=== PATIENT | male | born 1940 | race Caucasian/White ===

== ENCOUNTER 2018-05-31 20:13 | Inpatient (IN) | payer BC ==
[~2018-05-31] VITALS: Ht 175.3 cm; Wt 76.0 kg
[2018-05-31] MEDS ORDERED: IPRATROPIUM (NEB) 0.5 MG/2.5 ML AMP INH STA (20:34)
[2018-05-31] MEDS ORDERED: SODIUM CHLORIDE 0.9% 1L BAG IV* STA (20:34)
[2018-05-31] MEDS ORDERED: ALBUTEROL 0.5% (NEB) 2.5 MG/0.5 ML AMP INH STA (20:34)
[2018-05-31] MEDS ORDERED: METHYLPREDNISOLONE 125 MG INJ IV STA (20:34)
[2018-05-31] MEDS ORDERED: IBUPROFEN 600 MG TAB PO ONE (21:00)
--- NOTE | 2018-05-31 22:24 | ERD ---
ER Documentation Chief Complaint Chief Complaint bib ra from home for sob / cough, hx of asthma, given breathing tx en route HPI 78-year-old man complains of cough and wheezing, he does have a history of COPD and states he has been using his albuterol pump without relief. He denies fevers or chills, no chest pain, no calf or leg swelling. ROS All systems reviewed and are negative except as per history of present illness. Medications Home Meds Reported Medications Omeprazole* (Omeprazole*) 20 Mg Capsule.dr, 20 MG PO QAM, #30 CAP 05/31/18 Montelukast Sodium* (Montelukast Sodium*) 10 Mg Tablet, 10 MG PO QHS, #30 TAB 05/31/18 Finasteride* (Finasteride*) 5 Mg Tablet, 5 MG PO DAILY, TAB 05/31/18 Atorvastatin Calcium (Atorvastatin Calcium) 10 Mg Tablet, 10 MG PO QHS, #30 TAB 05/31/18 Aspirin Ec (Aspir 81) 81 Mg Tablet.dr, 81 MG PO DAILY, #30 TAB 05/31/18 Albuterol Sulfate* (Ventolin HFA*) 18 Gm Hfa.aer.ad, 2 PUFF INHALATION Q4H, #1 INHALER 05/31/18 Budesonide-Formoterol Fumarate* (Symbicort*) 160-4.5 Hfa.aer.ad, 2 PUFF INHALATION BID, #1 EACH 05/31/18 Duloxetine Hcl* (Duloxetine Hcl*) 60 Mg Capsule.dr, 60 MG PO DAILY for 90 Days, #90 05/31/18 Allergies Allergies: Coded Allergies: No Known Allergy (Unverified , 05/31/18) PMhx/Soc COPD, hypertension, BPH Medical and Surgical Hx: pt denies Surgical Hx Hx Respiratory Disorders: Yes (asthma, copd) Hx Cardiac Disorders: Yes (hyperlipidemia ) Hx Psychiatric Problems: No Hx Miscellaneous Medical Probl: No Hx Alcohol Use: No Hx Substance Use: No Hx Tobacco Use: No Smoking Status: Never smoker FmHx Family History: No diabetes Physical Exam Vitals Vital Signs Date Temp Pulse Resp B/P (MAP) Pulse Ox O2 O2 Flow FiO2 Time Delivery Rate 05/31/18 98 21 100 21 20:47 05/31/18 99.0 98 19 101/81 97 20:19 (88) Physical Exam Const: No acute distress, afebrile Head: Atraumatic Eyes: Normal Conjunctiva ENT: Normal External Ears, Nose and Mouth. Neck: Full range of motion. No meningismus. Resp: Wheezing bilaterally, no crackles or stridor Cardio: Regular rate and rhythm, no murmurs Abd: Soft, non tender, non distended. Normal bowel sounds Skin: No petechiae or rashes Back: No midline or flank tenderness Ext: No cyanosis, or edema Neur: Awake and alert x3, no focal deficits or facial asymmetry Psych: Normal Mood and Affect Result Diagram: 05/31/18210205/31/182102 Results 24 hrs Laboratory Tests Test 05/31/18 21:01 05/31/18 21:03 POC Venous Lactate 0.9 mmol/L White Blood Count 7.9 10^3/ul Red Blood Count 4.66 10^6/ul Hemoglobin 13.3 g/dl Hematocrit 40.2 % Mean Corpuscular Volume 86.3 fl Mean Corpuscular Hemoglobin 28.5 pg Mean Corpuscular Hemoglobin Concent 33.1 g/dl Red Cell Distribution Width 13.2 % Platelet Count 232 10^3/UL Mean Platelet Volume 9.5 fl Immature Granulocytes % 0.400 % Neutrophils % 62.4 % Lymphocytes % 22.5 % Monocytes % 10.7 % Eosinophils % 3.2 % Basophils % 0.8 % Nucleated Red Blood Cells % 0.0 /100WBC Immature Granulocytes # 0.030 10^3/ul Neutrophils # 4.9 10^3/ul Lymphocytes # 1.8 10^3/ul Monocytes # 0.8 10^3/ul Eosinophils # 0.3 10^3/ul Basophils # 0.1 10^3/ul Nucleated Red Blood Cells # 0.0 10^3/ul Prothrombin Time 12.8 Sec Prothrombin Time Ratio 1.0 INR International Normalized Ratio 0.95 Activated Partial Thromboplast Time 28.1 Sec Sodium Level 137 mmol/L Potassium Level 3.6 mmol/L Chloride Level 103 mmol/L Carbon Dioxide Level 26 mmol/L Anion Gap 8 Blood Urea Nitrogen 13 mg/dl Creatinine 1.05 mg/dl Est Glomerular Filtrat Rate mL/min mL/min Glucose Level 102 mg/dl Calcium Level 9.2 mg/dl Total Bilirubin 0.7 mg/dl Direct Bilirubin 0.00 mg/dl Indirect Bilirubin 0.7 mg/dl Aspartate Amino Transf (AST/SGOT) 24 IU/L Alanine Aminotransferase (ALT/SGPT) 21 IU/L Alkaline Phosphatase 84 IU/L Troponin I < 0.012 ng/ml Total Protein 7.4 g/dl Albumin 4.1 g/dl Globulin 3.30 g/dl Albumin/Globulin Ratio 1.24 Lipase 86 U/L Current Medications Medications Dose Sig/Liam Start Time Status Last (Trade) Ordered Route PRN Stop Time Admin Dose Reason Admin Albuterol 10 mg ONCE STAT 05/31/18 DC 05/31/18 (Proventil INH 20:34 05/31/18 20:47 0.5% (Neb)) 20:37 Ipratropium 1 mg ONCE STAT 05/31/18 DC 05/31/18 [place] INH 20:34 05/31/18 20:46 (Atrovent 20:37 0.02% (Neb)) 125 mg ONCE STAT 05/31/18 DC 05/31/18 Methylprednis IV 20:34 05/31/18 21:45 olone Sodium 20:37 Succinate (Solu-Medrol) Sodium 2,130 ml BOLUS OVER 2 05/31/18 DC 05/31/18 Chloride HOURS STAT 20:34 05/31/18 21:45 (NS) IV* 20:37 Ibuprofen 600 mg ONCE ONCE 05/31/18 DC 05/31/18 (Motrin) PO 21:00 05/31/18 22:15 21:01 Ceftriaxone 50 ml @ ONCE ONCE 05/31/18 DC 05/31/18 Sodium 100 mls/hr IVPB 22:30 05/31/18 22:50 22:59 Albuterol/ 3 ml Q4H RESP 06/01/18 Ipratropium THERAPY HHN 01:00 (Duoneb) IV Flush 3 ml PER 06/01/18 (NS 3 ml) PROTOCOL IV 00:00 Ondansetron 4 mg Q6H PRN 06/01/18 HCl (Zofran IV 00:00 Inj) NAUSEA/VOMITI NG 30 mg Q8H IV 06/01/18 Methylprednis 00:00 olone Sodium Succinate (Solu-Medrol) 650 mg Q6H PRN 06/01/18 Acetaminophen PO .PAIN 1-3 00:00 (Tylenol OR TEMP Tab) 40 mg DAILY@06 06/01/18 Pantoprazole PO 06:00 (Protonix Tab) Aspirin 81 mg DAILY PO 06/01/18 UNV (Halfprin) 09:00 10 mg QHS PO 06/01/18 UNV Atorvastatin 21:00 Calcium (Lipitor) Duloxetine 60 mg DAILY PO 06/01/18 UNV HCl 09:00 (Cymbalta) Finasteride 5 mg DAILY PO 06/01/18 UNV (Proscar) 09:00 Montelukast 10 mg QHS PO 06/01/18 UNV Sodium 21:00 (Singulair) 2 puff BID 06/01/18 UNV Miscellaneous INHALATION 09:00 Information Procedures/MDM IV line was established 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 Patient was afebrile. Blood and urine cultures have been ordered results are pending I will follow-up. Given his cough and wheezing he was initially given a dose of ceftriaxone 1 g IV as empiric therapy and ibuprofen 600 mg p.o. I also administered 2 L normal saline IV and albuterol 10 mg via nebulizer, ipratropium 1 mg via nebulizer, methylprednisolone 125 mg IV x1 1 view chest x-ray performed, read by me revealed atelectatic changes, no acute infiltrates, no pneumothorax. EKG performed, read by me revealed a sinus tachycardia at 104 bpm, normal axis, narrow QRS complex, no concerning ST elevations or depressions noted Lactic acid level was low and I do not suspect sepsis. CBC was normal, electr olytes unremarkable, liver function tests normal, troponin negative, influenza swabs were negative. Patient will be admitted to telemetry setting for continued bronchodilator therapy Departure Diagnosis: Primary Impression: Acute bronchitis with COPD Condition: HUMBLE Arreaga MD May 31, 2018 22:24
[2018-05-31] MEDS ORDERED: CEFTRIAXONE 1 GM/50 ML (PMX) 50 ML IVPB ONE (22:30)
[2018-05-31] MEDS ORDERED: OMEP20CA16 PO (23:53)
[2018-05-31] MEDS ORDERED: ALBU18HF INHALATION (23:53)
[2018-05-31] MEDS ORDERED: FINA5TAB4 PO (23:53)
[2018-05-31] MEDS ORDERED: BUDE6HFA INHALATION (23:53)
[2018-05-31] MEDS ORDERED: ASPI-535 PO (23:53)
[2018-05-31] MEDS ORDERED: MONT10TA24 PO (23:53)
[2018-05-31] MEDS ORDERED: DULO60CA59 PO (23:53)
[2018-05-31] MEDS ORDERED: ATOR10TA65 PO (23:53)
--- NOTE | 2018-05-31 23:55 | HP ---
Date/Time of Note Date/Time of Note DATE: 05/31/18 TIME: 23:55 Assessment/Plan VTE Prophylaxis SCD applied (from Nsg): Yes Pharmacological prophylaxis: NA/contraindicated Pharm contraindication: low risk/ambulating Lines/Catheters IV Catheter Type (from Nrsg): Saline Lock Assessment/Plan Hospital Course This is a 78-year-old male being admitted to the [facility] floor for: #1 acute on chronic COPD exacerbation: Serial scheduled nebulizers, continue Symbicort. IV steroids followed by p.o. burst. Protonix. Chest x-ray does not show any signs of pneumonia however given his exacerbation will give ceftriaxone azithromycin #2 abnormal chest x-ray: 7 mm nodularity noted, will obtain a 2 view chest x-ray in the a.m. for further evaluation. #3 mood disorder: Continue Cymbalta #4 BPH: Continue finasteride #5 hyperlipidemia: Continue statin #6 GERD: Continue PPI #7 DVT GI prophylaxis: SCDs, Protonix Result Diagram: 05/31/18210205/31/182102 Results 24hrs Laboratory Tests Test 05/31/18 21:01 05/31/18 21:03 POC Venous Lactate 0.9 White Blood Count 7.9 Red Blood Count 4.66 L Hemoglobin 13.3 L Hematocrit 40.2 L Mean Corpuscular Volume 86.3 Mean Corpuscular Hemoglobin 28.5 L Mean Corpuscular Hemoglobin Concent 33.1 Red Cell Distribution Width 13.2 Platelet Count 232 Mean Platelet Volume 9.5 Immature Granulocytes % 0.400 Neutrophils % 62.4 Lymphocytes % 22.5 Monocytes % 10.7 Eosinophils % 3.2 Basophils % 0.8 Nucleated Red Blood Cells % 0.0 Immature Granulocytes # 0.030 Neutrophils # 4.9 Lymphocytes # 1.8 Monocytes # 0.8 Eosinophils # 0.3 Basophils # 0.1 Nucleated Red Blood Cells # 0.0 Prothrombin Time 12.8 Prothrombin Time Ratio 1.0 INR International Normalized Ratio 0.95 Activated Partial Thromboplast Time 28.1 Sodium Level 137 Potassium Level 3.6 Chloride Level 103 Carbon Dioxide Level 26 Anion Gap 8 Blood Urea Nitrogen 13 Creatinine 1.05 Est Glomerular Filtrat Rate mL/min Glucose Level 102 Calcium Level 9.2 Total Bilirubin 0.7 Direct Bilirubin 0.00 Indirect Bilirubin 0.7 Aspartate Amino Transf (AST/SGOT) 24 Alanine Aminotransferase (ALT/SGPT) 21 Alkaline Phosphatase 84 Troponin I < 0.012 Total Protein 7.4 Albumin 4.1 Globulin 3.30 H Albumin/Globulin Ratio 1.24 Lipase 86 HPI/ROS Admit Date/Time Admit Date/Time Hx of Present Illness Chief complaint: Cough, wheezing times 3 weeks This is a 78-year-old male with a history of COPD who presented to [facility] for cough times 3 weeks. Patient reports that he has been having a worsening cough for the last 3 weeks accompanied with wheezing. He is also felt lightheaded. He has also felt short of breath and as his symptoms continued to get worse he came into the emergency department. He did report subjective fevers. He denies any sputum production. He does use inhalers at home. He denies any chest pain or lower extremity edema. Allergies: NKDA Medications: See RAMIRO SALMERON Const: As per HPI Eyes : No pain discharge or redness or change in visual acuity ENT: No pain, sore throat, congestion, congestion, dysphagia or discharge Respiratory: As per HPI Cardiovascular: No chest pain, palpitation, PND, or edema GI : no change in appetite, abdominal pain, nausea, vomiting, diarrhea, constipation, or change in the color his stool Genitourinary: No dysuria, hematuria, flank pain , discharge or CVA tenderness Musculoskeletal: No joint pain, back pain, neck pain, restricted range of motion in neck or joints Skin: No rash, bruising or hives Neuro: No headache, dizziness, syncope, seizure, focal weakness Endocrine: No polyuria, polydipsia, temperature intolerance Psych: No hallucination, depression, anxiety or suicidal ideation PMH/Family/Social Past Medical History COPD, mood disorder, hyperlipidemia, BPH, GERD Medications Current Medications Albuterol/ Ipratropium (Duoneb) 3 ml Q4H RESP THERAPY HHN ; Start 06/01/18 at 01:00 Coded Allergies: No Known Allergy (Unverified , 05/31/18) Past Surgical History Left hip and femur surgery status post injury Family History Significant Family History: no pertinent family hx Social History Alcohol Use: none Smoking Status: Former smoker Drug Use: none Exam/Review of Systems Vital Signs Vitals Vital Signs Date Temp Pulse Resp B/P (MAP) Pulse Ox O2 O2 Flow FiO2 Time Delivery Rate 05/31/18 98 21 100 21 20:47 05/31/18 99.0 101/81 20:19 (88) Exam Exam General: Patient is a pleasant male currently lying in bed he does not appear to be in any acute distress, he does appear fatigued HEENT: Atraumatic, normocephalic. The pupils are equal, round and reactive. Extraocular motor are intact Neck: Supple with full range of motion. No rigidity or meningismus Chest: Nontender Lungs: Bilateral expiratory wheezing, nonlabored breathing. Heart: Normal S1-S2, Regular rhythm and rate. No murmur, S3, or S4 Abdomen: Soft , nontender, nondistended , bowel sounds are present. No guarding no rebound tenderness , No masses or organomegaly. No costovertebral temporal angle mass Extremities: Normal to inspection, no edema no cyanosis Neurologic: Normal mental status, speech normal, cranial nerves II through XII are intact, motor and sensory are intact, no focal weakness Additional Comments PROCEDURE: Chest xray. CLINICAL INDICATION: Exacerbation TECHNIQUE: A portable upright AP view of the chest was obtained. COMPARISON: None. FINDINGS: The cardiomediastinal silhouette is within normal limits. The lungs are mildly hyperinflated and show normal vascularity. There is a 7 mm nodular opacity projecting in the left mid lung zone, possibly vascular in etiology. The right lung is clear. No pleural effusion or pneumothorax is identified. The skeletal structures and soft tissues are unremarkable. IMPRESSION: Mild hyperinflation. 7 mm nodular opacity projecting in the left mid lung zone, possibly vascular in etiology however pulmonary nodule is not excluded. Recommend repeating the chest x-ray with 2 views (PA and lateral). RPTAT:PP .Veronika Huber MD, Date Time Electronically viewed and signed by .Veronika Huber MD, on 05/31/2018 22:51 .K/ CC: HUMBLE HERNANDEZ MD [id number] HORACIO ALEMAN May 31, 2018 23:55
[2018-06-01] MEDS ORDERED: ONDANSETRON 4 MG INJ IV PRN
[2018-06-01] MEDS ORDERED: ACETAMINOPHEN 325 MG TAB PO PRN
[2018-06-01] MEDS ORDERED: NACL 0.9% 3 ML SYG IV SCH
[2018-06-01] MEDS: ALBUTEROL/IPRATROPIUM (NEB) 3 ML AMP HHN SCH ×4 (00:47→13:39)
[2018-06-01] MEDS ORDERED: LORAZEPAM 2 MG INJ IV PRN (01:00)
[2018-06-01] MEDS: METHYLPREDNISOLONE 125 MG INJ IV SCH ×3 (01:38→16:13)
[2018-06-01] MEDS ORDERED: AZITHROMYCIN 250 MG TAB PO ONE (02:00)
[2018-06-01 02:04] VITALS: Ht 175.3 cm; Wt 76.0 kg
[2018-06-01 02:20] VITALS: BP 105/53; PULSE 81; RESP 18
[2018-06-01] MEDS: PANTOPRAZOLE (EC) 40 MG TAB PO SCH (06:19)
[2018-06-01 07:36] VITALS: BP 100/59; PULSE 66; RESP 16
[2018-06-01] MEDS ORDERED: NON-FORMULARY/PATIENT OWN MED (Budesonide-Formoterol Fumarate* (Symbicort*) 2 PUFF) INHALATION SCH (09:00)
[2018-06-01] MEDS: FINASTERIDE 5 MG TAB PO SCH ×2 (09:00→13:19)
[2018-06-01] MEDS: ASPIRIN (EC) 81 MG TAB PO SCH (09:17)
[2018-06-01] MEDS: DULOXETINE 30 MG CAP DR PO SCH (09:17)
[2018-06-01] MEDS ORDERED: ALFU10TA2 PO (09:52)
[2018-06-01] MEDS: CEPASTAT LOZENGE MT PRN ×3 (13:23→20:36)
[2018-06-01 14:15] VITALS: BP 112/56; PULSE 80; RESP 16
--- NOTE | 2018-06-01 15:07 | PN ---
Date/Time of Note Date/Time of Note DATE: 06/01/18 TIME: 15:03 Assessment/Plan VTE Prophylaxis Risk score (from Nsg)>0 risk: 4 SCD applied (from Nsg): Yes Pharmacological prophylaxis: LMWH Lines/Catheters IV Catheter Type (from Nrsg): Peripheral IV Assessment/Plan Hospital Course SUBJECTIVE: Dyspnea improved. OBJECTIVE: Physical Exam General: Adequately build 78 year-old male lying in bed in no apparent distress. HEENT: Normocephalic, atraumatic. Eyes: Anicteric sclerae, conjunctivae clear. ENT: Nasal septum midline, oral mucosa moist. Neck supple, no JVD noticed. Respiratory: Bilaterally diminished breath sounds. No use of accessory muscles of respiration. Bilateral expiratory wheezing. Cardiovascular: S1, S2 heard. Regular rate and rhythm. Abdomen: Soft, nontender, and nondistended. Bowel sounds positive in all 4 quadrants. Genitourinary: Deferred. Extremities: No cyanosis, no edema. Peripheral pulses palpable. Neurologic: Cranial nerves II through XII grossly intact. The patient is awake, alert, and oriented. Skin: Normal skin turgor. No skin rashes. Labs & Vitals per chart ASSESSMENT & PLAN 78-year-old male with comorbidities including COPD, dyslipidemia, prostatic hypertrophy, GERD, and mood disorder, who came to the emergency room with chief complaint of cough and wheezing, who was found to have evidence of underlying COPD exacerbation; he was admitted to inpatient setting for further treatment and evaluation. 1. COPD exacerbation. -Continue inhaled bronchodilators BABITA and LABA. -Continue tapering dose of steroids. 2. Possible underlying acute tracheobronchitis. -Continue ceftriaxone plus Zithromax. 3. Dyslipidemia. -Continue statins. 4. Normocytic anemia. -Most probably anemia of chronic disease. -Monitor H&H closely. 5. Mood disorder. -Continue Cymbalta. 6. Prostate hypertrophy. -Continue finasteride and alfuzosin. 7. Fluids, electrolytes, and nutrition. -Low-cholesterol diet. 8. DVT prophylaxis. -Subcutaneous Lovenox. 9. Plan. -Continue tapering dose of steroids. -Continue inhaled bronchodilators -Await clinical improvement. The patient was seen in collaboration with Dr. Sharma. Result Diagram: 06/01/18 0557 06/01/18 0557 Results 24hrs Laboratory Tests Test 05/31/18 21:01 05/31/18 21:03 06/01/18 05:57 POC Venous Lactate 0.9 White Blood Count 7.9 5.2 # Red Blood Count 4.66 L 4.51 L Hemoglobin 13.3 L 12.5 L Hematocrit 40.2 L 39.5 L Mean Corpuscular Volume 86.3 87.6 Mean Corpuscular Hemoglobin 28.5 L 27.7 L Mean Corpuscular Hemoglobin Concent 33.1 31.6 L Red Cell Distribution Width 13.2 13.2 Platelet Count 232 225 Mean Platelet Volume 9.5 9.4 Immature Granulocytes % 0.400 0.400 Neutrophils % 62.4 91.4 H Lymphocytes % 22.5 6.3 L Monocytes % 10.7 1.7 Eosinophils % 3.2 0.0 Basophils % 0.8 0.2 Nucleated Red Blood Cells % 0.0 0.0 Immature Granulocytes # 0.030 0.020 Neutrophils # 4.9 4.8 Lymphocytes # 1.8 0.3 L Monocytes # 0.8 0.1 L Eosinophils # 0.3 0.0 Basophils # 0.1 0.0 Nucleated Red Blood Cells # 0.0 0.0 Prothrombin Time 12.8 Prothrombin Time Ratio 1.0 INR International Normalized Ratio 0.95 Activated Partial Thromboplast Time 28.1 Sodium Level 137 141 Potassium Level 3.6 4.1 Chloride Level 103 107 Carbon Dioxide Level 26 24 Anion Gap 8 10 Blood Urea Nitrogen 13 13 Creatinine 1.05 0.97 Est Glomerular Filtrat Rate mL/min Glucose Level 102 172 Calcium Level 9.2 8.9 Total Bilirubin 0.7 0.4 Direct Bilirubin 0.00 0.00 Indirect Bilirubin 0.7 0.4 Aspartate Amino Transf (AST/SGOT) 24 22 Alanine Aminotransferase (ALT/SGPT) 21 18 Alkaline Phosphatase 84 64 Troponin I < 0.012 Total Protein 7.4 6.8 Albumin 4.1 3.8 Globulin 3.30 H 3.00 Albumin/Globulin Ratio 1.24 1.26 Lipase 86 Hemoglobin A1c 5.7 Magnesium Level 2.0 Triglycerides Level 39 Cholesterol Level 109 LDL Cholesterol, Calculated 42 HDL Cholesterol 59 Cholesterol/HDL Ratio 1.8 Thyroid Stimulating Hormone (TSH) 0.404 L Exam/Review of Systems Exam Vitals Vital Signs Date Temp Pulse Resp B/P (MAP) Pulse Ox O2 O2 Flow FiO2 Time Delivery Rate 06/01/18 97.5 80 16 112/56 95 14:15 (74) 06/01/18 21 13:39 06/01/18 Room Air 01:45 Results Results 24hrs Laboratory Tests Test 05/31/18 21:01 05/31/18 21:03 06/01/18 05:57 POC Venous Lactate 0.9 White Blood Count 7.9 5.2 # Red Blood Count 4.66 L 4.51 L Hemoglobin 13.3 L 12.5 L Hematocrit 40.2 L 39.5 L Mean Corpuscular Volume 86.3 87.6 Mean Corpuscular Hemoglobin 28.5 L 27.7 L Mean Corpuscular Hemoglobin Concent 33.1 31.6 L Red Cell Distribution Width 13.2 13.2 Platelet Count 232 225 Mean Platelet Volume 9.5 9.4 Immature Granulocytes % 0.400 0.400 Neutrophils % 62.4 91.4 H Lymphocytes % 22.5 6.3 L Monocytes % 10.7 1.7 Eosinophils % 3.2 0.0 Basophils % 0.8 0.2 Nucleated Red Blood Cells % 0.0 0.0 Immature Granulocytes # 0.030 0.020 Neutrophils # 4.9 4.8 Lymphocytes # 1.8 0.3 L Monocytes # 0.8 0.1 L Eosinophils # 0.3 0.0 Basophils # 0.1 0.0 Nucleated Red Blood Cells # 0.0 0.0 Prothrombin Time 12.8 Prothrombin Time Ratio 1.0 INR International Normalized Ratio 0.95 Activated Partial Thromboplast Time 28.1 Sodium Level 137 141 Potassium Level 3.6 4.1 Chloride Level 103 107 Carbon Dioxide Level 26 24 Anion Gap 8 10 Blood Urea Nitrogen 13 13 Creatinine 1.05 0.97 Est Glomerular Filtrat Rate mL/min Glucose Level 102 172 Calcium Level 9.2 8.9 Total Bilirubin 0.7 0.4 Direct Bilirubin 0.00 0.00 Indirect Bilirubin 0.7 0.4 Aspartate Amino Transf (AST/SGOT) 24 22 Alanine Aminotransferase (ALT/SGPT) 21 18 Alkaline Phosphatase 84 64 Troponin I < 0.012 Total Protein 7.4 6.8 Albumin 4.1 3.8 Globulin 3.30 H 3.00 Albumin/Globulin Ratio 1.24 1.26 Lipase 86 Hemoglobin A1c 5.7 Magnesium Level 2.0 Triglycerides Level 39 Cholesterol Level 109 LDL Cholesterol, Calculated 42 HDL Cholesterol 59 Cholesterol/HDL Ratio 1.8 Thyroid Stimulating Hormone (TSH) 0.404 L Medications Medication Current Medications Albuterol/ Ipratropium (Duoneb) 3 ml Q4H RESP THERAPY HHN Last administered on 06/01/18at 13:39; Admin Dose 3 ML; Start 06/01/18 at 01:00 IV Flush (NS 3 ml) 3 ml PER PROTOCOL IV ; Start 06/01/18 at 00:00 Ondansetron HCl (Zofran Inj) 4 mg Q6H PRN IV NAUSEA/VOMITING; Start 06/01/18 at 00:00 Methylprednisolone Sodium Succinate (Solu-Medrol) 30 mg Q8H IV Last administered on 06/01/18at 09:18; Admin Dose 30 MG; Start 06/01/18 at 00:00 Acetaminophen (Tylenol Tab) 650 mg Q6H PRN PO .PAIN 1-3 OR TEMP; Start 06/01/18 at 00:00 Pantoprazole (Protonix Tab) 40 mg DAILY@06 PO Last administered on 06/01/18at 06:19; Admin Dose 40 MG; Start 06/01/18 at 06:00 Aspirin (Halfprin) 81 mg DAILY PO Last administered on 06/01/18at 09:17; Admin Dose 81 MG; Start 06/01/18 at 09:00 Atorvastatin Calcium (Lipitor) 10 mg QHS PO ; Start 06/01/18 at 21:00 Duloxetine HCl (Cymbalta) 60 mg DAILY PO Last administered on 06/01/18at 09:17; Admin Dose 60 MG; Start 06/01/18 at 09:00 Finasteride (Proscar) 5 mg DAILY PO Last administered on 06/01/18at 13:19; Admin Dose 5 MG; Start 06/01/18 at 09:00 Montelukast Sodium (Singulair) 10 mg QHS PO ; Start 06/01/18 at 21:00 Lorazepam (Ativan) 0.5 mg Q8H PRN IV AGITATION; Start 06/01/18 at 01:00; Stop 06/02/18 at 00:59 Ceftriaxone Sodium 50 ml @ 100 mls/hr Q24H IVPB ; Start 06/01/18 at 20:00 Azithromycin (Zithromax) 250 mg DAILY PO ; Start 06/02/18 at 09:00; Stop 06/06/18 at 08:59 Phenol (Cepastat Lozenge) 1 lozenge Q1H PRN MT SORE THROAT Last administered on 06/01/18at 13:23; Admin Dose 1 LOZENGE; Start 06/01/18 at 12:30 Alfuzosin HCl (Uroxatral) 10 mg HS PO ; Start 06/01/18 at 21:00 Arformoterol Tartrate (Brovana (Neb)) 2 ml BID INH ; Start 06/01/18 at 15:00 Budesonide (Pulmicort (Neb)) 0.5 mg BID INH ; Start 06/01/18 at 15:00 DANIELA FOOTE NP Jun 01, 2018 15:07
[2018-06-01] MEDS: ARFORMOTEROL TARTRATE 15MCG/2 ML AMP INH SCH ×2 (16:15→20:04)
[2018-06-01] MEDS: BUDESONIDE (NEB) 0.5MG/2ML AMP INH SCH ×2 (16:24→20:04)
[2018-06-01 19:53] VITALS: BP 135/63; PULSE 91; RESP 18
[2018-06-01] MEDS: CEFTRIAXONE 1 GM/50 ML (PMX) 50 ML IVPB SCH (20:29)
[2018-06-01] MEDS: ATORVASTATIN 10 MG TAB PO SCH (20:30)
[2018-06-01] MEDS: ALFUZOSIN (SR) 10 MG TAB PO SCH (20:30)
[2018-06-01] MEDS: MONTELUKAST 10 MG TAB PO SCH (21:00)
[2018-06-02] MEDS: METHYLPREDNISOLONE 125 MG INJ IV SCH ×2 (00:04→08:42)
[2018-06-02 01:52] VITALS: BP 117/59; PULSE 73; RESP 18
[2018-06-02] MEDS: PANTOPRAZOLE (EC) 40 MG TAB PO SCH (05:08)
[2018-06-02 08:14] VITALS: BP 117/61; PULSE 90; RESP 18
[2018-06-02] MEDS: ASPIRIN (EC) 81 MG TAB PO SCH (08:41)
[2018-06-02] MEDS: DULOXETINE 30 MG CAP DR PO SCH (08:41)
[2018-06-02] MEDS: FINASTERIDE 5 MG TAB PO SCH (08:41)
[2018-06-02] MEDS: BUDESONIDE (NEB) 0.5MG/2ML AMP INH SCH ×2 (08:51→20:54)
[2018-06-02] MEDS: ARFORMOTEROL TARTRATE 15MCG/2 ML AMP INH SCH ×2 (08:51→20:55)
[2018-06-02] MEDS: AZITHROMYCIN 250 MG TAB PO SCH (11:27)
--- NOTE | 2018-06-02 12:20 | PN ---
Date/Time of Note Date/Time of Note DATE: 06/02/18 TIME: 12:20 Assessment/Plan VTE Prophylaxis Risk score (from Ns)>0 risk: 4 SCD applied (from Nsg): Yes Pharmacological prophylaxis: LMWH Lines/Catheters IV Catheter Type (from Nrs): Saline Lock Assessment/Plan Hospital Course SUBJECTIVE: Dyspnea improved. OBJECTIVE: Physical Exam General: Adequately build 78 year-old male lying in bed in no apparent distress. HEENT: Normocephalic, atraumatic. Eyes: Anicteric sclerae, conjunctivae clear. ENT: Nasal septum midline, oral mucosa moist. Neck supple, no JVD noticed. Respiratory: Bilaterally diminished breath sounds. No use of accessory muscles of respiration. Bilateral expiratory wheezing. Cardiovascular: S1, S2 heard. Regular rate and rhythm. Abdomen: Soft, nontender, and nondistended. Bowel sounds positive in all 4 quadrants. Genitourinary: Deferred. Extremities: No cyanosis, no edema. Peripheral pulses palpable. Neurologic: Cranial nerves II through XII grossly intact. The patient is awake, alert, and oriented. Skin: Normal skin turgor. No skin rashes. Labs & Vitals per chart ASSESSMENT & PLAN 78-year-old male with comorbidities including COPD, dyslipidemia, prostatic hypertrophy, GERD, and mood disorder, who came to the emergency room with chief complaint of cough and wheezing, who was found to have evidence of underlying COPD exacerbation; he was admitted to inpatient setting for further treatment and evaluation. 1. COPD exacerbation. -Continue inhaled bronchodilators BABITA and LABA. -Continue tapering dose of steroids. 2. Possible underlying acute tracheobronchitis. -Continue ceftriaxone plus Zithromax. 3. Dyslipidemia. -Continue statins. 4. Normocytic anemia. -Most probably anemia of chronic disease. -Monitor H&H closely. 5. Mood disorder. -Continue Cymbalta. 6. Prostate hypertrophy. -Continue finasteride and alfuzosin. 7. Fluids, electrolytes, and nutrition. -Low-cholesterol diet. 8. DVT prophylaxis. -Subcutaneous Lovenox. 9. Plan. -Continue tapering dose of steroids. -Continue inhaled bronchodilators -Await clinical improvement. The patient was seen in collaboration with Dr. Sharma. Result Diagram: 06/02/18 0528 06/02/18 0528 Results 24hrs Laboratory Tests Test 06/02/18 05:28 White Blood Count 12.2 #H Red Blood Count 4.13 L Hemoglobin 11.6 L Hematocrit 35.8 L Mean Corpuscular Volume 86.7 Mean Corpuscular Hemoglobin 28.1 L Mean Corpuscular Hemoglobin Concent 32.4 Red Cell Distribution Width 13.2 Platelet Count 240 Mean Platelet Volume 9.7 Immature Granulocytes % 0.300 Neutrophils % 89.3 H Lymphocytes % 4.9 L Monocytes % 5.4 Eosinophils % 0.0 Basophils % 0.1 Nucleated Red Blood Cells % 0.0 Immature Granulocytes # 0.040 H Neutrophils # 10.9 H Lymphocytes # 0.6 L Monocytes # 0.7 Eosinophils # 0.0 Basophils # 0.0 Nucleated Red Blood Cells # 0.0 Sodium Level 140 Potassium Level 4.4 Chloride Level 111 H Carbon Dioxide Level 23 Anion Gap 6 Blood Urea Nitrogen 21 H Creatinine 0.91 Est Glomerular Filtrat Rate mL/min Glucose Level 141 Calcium Level 8.9 Phosphorus Level 3.7 Magnesium Level 2.2 Exam/Review of Systems Exam Vitals Vital Signs Date Temp Pulse Resp B/P (MAP) Pulse Ox O2 O2 Flow FiO2 Time Delivery Rate 06/02/18 20 21 09:01 06/02/18 93 96 08:56 06/02/18 98.3 117/61 08:14 (79) 06/01/18 Room Air 01:45 Intake and Output 06/01/18 06/01/18 06/02/18 1515:00 23:00 07:00 IntakeIntake Total 640 ml 590 ml 480 ml BalanceBalance 640 ml 590 ml 480 ml Results Results 24hrs Laboratory Tests Test 06/02/18 05:28 White Blood Count 12.2 #H Red Blood Count 4.13 L Hemoglobin 11.6 L Hematocrit 35.8 L Mean Corpuscular Volume 86.7 Mean Corpuscular Hemoglobin 28.1 L Mean Corpuscular Hemoglobin Concent 32.4 Red Cell Distribution Width 13.2 Platelet Count 240 Mean Platelet Volume 9.7 Immature Granulocytes % 0.300 Neutrophils % 89.3 H Lymphocytes % 4.9 L Monocytes % 5.4 Eosinophils % 0.0 Basophils % 0.1 Nucleated Red Blood Cells % 0.0 Immature Granulocytes # 0.040 H Neutrophils # 10.9 H Lymphocytes # 0.6 L Monocytes # 0.7 Eosinophils # 0.0 Basophils # 0.0 Nucleated Red Blood Cells # 0.0 Sodium Level 140 Potassium Level 4.4 Chloride Level 111 H Carbon Dioxide Level 23 Anion Gap 6 Blood Urea Nitrogen 21 H Creatinine 0.91 Est Glomerular Filtrat Rate mL/min Glucose Level 141 Calcium Level 8.9 Phosphorus Level 3.7 Magnesium Level 2.2 Medications Medication Current Medications IV Flush (NS 3 ml) 3 ml PER PROTOCOL IV ; Start 06/01/18 at 00:00 Ondansetron HCl (Zofran Inj) 4 mg Q6H PRN IV NAUSEA/VOMITING; Start 06/01/18 at 00:00 Methylprednisolone Sodium Succinate (Solu-Medrol) 30 mg Q8H IV Last administered on 06/02/18 08:42; Admin Dose 30 MG; Start 06/01/18 at 00:00 Acetaminophen (Tylenol Tab) 650 mg Q6H PRN PO .PAIN 1-3 OR TEMP; Start 06/01/18 at 00:00 Pantoprazole (Protonix Tab) 40 mg DAILY@06 PO Last administered on 06/02/18 05:08; Admin Dose 40 MG; Start 06/01/18 at 06:00 Aspirin (Halfprin) 81 mg DAILY PO Last administered on 06/02/18 08:41; Admin Dose 81 MG; Start 06/01/18 at 09:00 Atorvastatin Calcium (Lipitor) 10 mg QHS PO Last administered on 06/01/18 20:30; Admin Dose 10 MG; Start 06/01/18 at 21:00 Duloxetine HCl (Cymbalta) 60 mg DAILY PO Last administered on 06/02/18 08:41; Admin Dose 60 MG; Start 06/01/18 at 09:00 Finasteride (Proscar) 5 mg DAILY PO Last administered on 06/02/18 08:41; Admin Dose 5 MG; Start 06/01/18 at 09:00 Montelukast Sodium (Singulair) 10 mg QHS PO ; Start 06/01/18 at 21:00 Ceftriaxone Sodium 50 ml @ 100 mls/hr Q24H IVPB Last administered on 06/01/18 20:29; Admin Dose 100 MLS/HR; Start 06/01/18 at 20:00 Azithromycin (Zithromax) 250 mg DAILY PO Last administered on 06/02/18 11:27; Admin Dose 250 MG; Start 06/02/18 at 09:00; Stop 06/06/18 at 08:59 Phenol (Cepastat Lozenge) 1 lozenge Q1H PRN MT SORE THROAT Last administered on 06/02/18at 00:00; Admin Dose 1 LOZENGE; Start 06/01/18 at 12:30 Alfuzosin HCl (Uroxatral) 10 mg HS PO Last administered on 06/01/18at 20:30; Admin Dose 10 MG; Start 06/01/18 at 21:00 Arformoterol Tartrate (Brovana (Neb)) 2 ml BID INH Last administered on 06/02/18 08:51; Admin Dose 2 ML; Start 06/01/18 at 15:00 Budesonide (Pulmicort (Neb)) 0.5 mg BID INH Last administered on 06/02/18 08:51; Admin Dose 0.5 MG; Start 06/01/18 at 15:00 DANIELA FOOTE NP Jun 02, 2018 12:20
[2018-06-02] MEDS: ALBUTEROL/IPRATROPIUM (NEB) 3 ML AMP HHN PRN ×2 (15:09→20:54)
[2018-06-02] MEDS: CEPASTAT LOZENGE MT PRN ×2 (16:48)
[2018-06-02 17:22] VITALS: BP 132/69; PULSE 101; RESP 19
[2018-06-02 19:50] VITALS: BP 116/62; PULSE 84; RESP 18
[2018-06-02] MEDS: ALFUZOSIN (SR) 10 MG TAB PO SCH (20:55)
[2018-06-02] MEDS: CEFTRIAXONE 1 GM/50 ML (PMX) 50 ML IVPB SCH (20:55)
[2018-06-02] MEDS: MONTELUKAST 10 MG TAB PO SCH (20:56)
[2018-06-02] MEDS: ATORVASTATIN 10 MG TAB PO SCH (20:56)
[2018-06-03 01:56] VITALS: BP 121/60; PULSE 86; RESP 18
[2018-06-03] MEDS: PANTOPRAZOLE (EC) 40 MG TAB PO SCH (05:35)
[2018-06-03 07:41] VITALS: BP 128/73; PULSE 66; RESP 20
[2018-06-03] MEDS: DULOXETINE 30 MG CAP DR PO SCH (08:27)
[2018-06-03] MEDS: FINASTERIDE 5 MG TAB PO SCH (08:27)
[2018-06-03] MEDS: AZITHROMYCIN 250 MG TAB PO SCH (08:27)
[2018-06-03] MEDS: ASPIRIN (EC) 81 MG TAB PO SCH (08:27)
[2018-06-03] MEDS ORDERED: predniSONE 20 MG TAB PO SCH (09:00)
[2018-06-03] MEDS: ARFORMOTEROL TARTRATE 15MCG/2 ML AMP INH SCH (10:21)
[2018-06-03] MEDS: BUDESONIDE (NEB) 0.5MG/2ML AMP INH SCH (10:21)
--- NOTE | 2018-06-03 13:20 | PDOCDIS ---
Discharge Instructions CONDITION [id number] Patient Condition: [id number] Stable HOME CARE INSTRUCTIONS: [id number] Diet Instructions: [id number] Low Fat /Cholesterol ACTIVITY: [id number] Activity Restrictions: [id number] Slowly Increase Activity Do not Drive FOLLOW UP/APPOINTMENTS Follow-up Plan appt primary 1wk MANAV ABBASI MD Jun 03, 2018 13:20
--- NOTE | 2018-06-03 13:20 | DS ---
Date/Time of Note Date/Time of Note DATE: 06/03/18 TIME: 13:18 Discharge Summary Admission/Discharge Info Admit Date/Time May 31, 2018 at 23:25 Discharge Date/Time Patient Condition: Stable Procedures Lab: Influenza testing troponins negative. Chest x-ray #2 CLINICAL INDICATION: 78-year-old male with abnormal chest x-ray. TECHNIQUE: PA and lateral views of the chest were performed on three radiographs. The images were reviewed on a PACS workstation. COMPARISON: Chest x-ray one-view May 31, 2018. FINDINGS: The cardiomediastinal silhouette is within normal limits. The descending thoracic aorta appears ectatic. Chronic lung changes are present. There is mild biapical scarring. There is a calcified granuloma within the left mid lung zone measuring approximately 7 mm. There is no evidence for focal consolidation. There is no evidence for congestive heart failure. There is no evidence for pneumothorax. The osseous structures are intact. IMPRESSION: Chronic lung changes with mild biapical scarring and left mid lung zone 7 mm granuloma. .Torres Campoverde MD, MD Date Time Electronically viewed and signed by .Torres Campoverde MD, MD on 06/01/2018 01:36 Hx of Present Illness 78-year-old gentleman admitted with shortness of breath cough wheezing. No fever travel edema chest pain. Hospital Course Hospitalist coverage/hospital course Evaluated and managed for COPD exacerbation. Symptoms improved, stable and fit for discharge on short course of steroids and azithromycin. Recommend he follow-up with primary tomorrow or later this week. Additionally he was found to have a granuloma. Recommend outpatient repeat imaging/surveillance as indicated. COPD exacerbation Pulmonary granuloma 7 mm Past tobacco Subclinical hyperthyroidism Dyslipidemia BPH GERD Mood disorder? Anemia Home Meds Reported Medications Alfuzosin Hcl* (Alfuzosin Hcl*) 10 Mg Tab.er.24h, 10 MG PO DAILY, #30 TAB.SA 06/01/18 Omeprazole* (Omeprazole*) 20 Mg Capsule.dr, 20 MG PO QAM, #30 CAP 05/31/18 Montelukast Sodium* (Montelukast Sodium*) 10 Mg Tablet, 10 MG PO QHS, #30 TAB 05/31/18 Finasteride* (Finasteride*) 5 Mg Tablet, 5 MG PO DAILY, TAB 05/31/18 Atorvastatin Calcium (Atorvastatin Calcium) 10 Mg Tablet, 10 MG PO QHS, #30 TAB 05/31/18 Aspirin Ec (Aspir 81) 81 Mg Tablet.dr, 81 MG PO DAILY, #30 TAB 05/31/18 Albuterol Sulfate* (Ventolin HFA*) 18 Gm Hfa.aer.ad, 2 PUFF INHALATION Q4H, #1 INHALER 05/31/18 Budesonide-Formoterol Fumarate* (Symbicort*) 160-4.5 Hfa.aer.ad, 2 PUFF INHALATION BID, #1 EACH 05/31/18 Duloxetine Hcl* (Duloxetine Hcl*) 60 Mg Capsule.dr, 60 MG PO DAILY for 90 Days, #90 05/31/18 Primary Care Provider Not On Staff Doctor Time spent on discharge: > 30 minutes Pending Labs Laboratory Tests Test 06/03/18 04:49 White Blood Count 12.3 10^3/ul (4.8-10.8) Red Blood Count 4.29 10^6/ul (4.70-6.10) Hemoglobin 12.1 g/dl (14.0-18.0) Hematocrit 37.8 % (42.0-52.0) Mean Corpuscular Volume 88.1 fl (82.0-101.0) Mean Corpuscular Hemoglobin 28.2 pg (29.0-33.0) Mean Corpuscular Hemoglobin Concent 32.0 g/dl (32.0-37.0) Red Cell Distribution Width 13.4 % (11.5-14.5) Platelet Count 251 10^3/UL (140-415) Mean Platelet Volume 10.0 fl (7.4-10.4) Immature Granulocytes % 0.700 % (0.001-0.429) Neutrophils % 85.0 % (39.0-77.0) Lymphocytes % 8.7 % (15.0-51.0) Monocytes % 5.4 % (0.0-11.0) Eosinophils % 0.0 % (0.0-7.0) Basophils % 0.2 % (0.0-2.0) Nucleated Red Blood Cells % 0.0 /100WBC (0.0-0.0) Immature Granulocytes # 0.090 10^3/ul (0.0-0.031) Neutrophils # 10.5 10^3/ul (1.6-7.5) Lymphocytes # 1.1 10^3/ul (0.8-2.9) Monocytes # 0.7 10^3/ul (0.3-0.9) Eosinophils # 0.0 10^3/ul (0.0-0.5) Basophils # 0.0 10^3/ul (0.0-0.1) Nucleated Red Blood Cells # 0.0 10^3/ul (0.0-0.0) Sodium Level 143 mmol/L (135-144) Potassium Level 4.5 mmol/L (3.5-5.1) Chloride Level 108 mmol/L (97-110) Carbon Dioxide Level 29 mmol/L (21-31) Anion Gap 6 (5-13) Blood Urea Nitrogen 23 mg/dl (7-20) Creatinine 1.01 mg/dl (0.61-1.24) Est Glomerular Filtrat Rate mL/min mL/min (>60) Glucose Level 128 mg/dl (70-220) Calcium Level 9.3 mg/dl (8.4-10.2) Phosphorus Level 3.6 mg/dl (2.5-4.9) Magnesium Level 2.4 mg/dl (1.7-2.5) MANAV ABBASI MD Jun 03, 2018 13:20
[2018-06-03] MEDS ORDERED: AZIT250T13 PO (13:23)
[2018-06-03] MEDS ORDERED: PRED20TA PO (13:23)
[2018-06-03] MEDS ORDERED: ACET325T33 PO (13:23)
[2018-06-03 13:47] VITALS: BP 126/76; PULSE 76; RESP 20
== END 2018-06-03 17:05 | disposition home or self-care (01) | DRG 192 ==
LOC: E/R 20:13 → 2NE 23:25 → EDBEDREQDT 06-01 00:56 → EDBEDREQSVC 06-01 00:56 → EDBEDREQ 06-01 00:56 → EDBEDREQTM 06-01 00:56
PROVIDERS: ADMIT Family Medicine; ATTEND Internal Medicine
DX: J44.1 Chronic obstructive pulmonary disease with (acute) exacerbation (principal); J84.10 Pulmonary fibrosis, unspecified; E05.90 Thyrotoxicosis, unspecified without thyrotoxic crisis or storm; D64.9 Anemia, unspecified; J20.9 Acute bronchitis, unspecified; J44.0 Chronic obstructive pulmonary disease with (acute) lower respiratory infection; F39 Unspecified mood [affective] disorder; N40.0 Benign prostatic hyperplasia without lower urinary tract symptoms; E78.5 Hyperlipidemia, unspecified; K21.9 Gastro-esophageal reflux disease without esophagitis; Z87.891 Personal history of nicotine dependence
CPT/HCPCS: 36415; 71045; 71046; 80048; 80053; 80061; 83036; 83605; 83690; 83735; 84100; 84443; 84484; 85025; 85610; 85730; 87400; 93005; 94640; 94644; 94664; 96374; 96375; J0696; J2930; J7030; J7512